=== PATIENT | female | born 1995 | race African-American/Black ===

== ENCOUNTER 2019-09-11 19:28 | Emergency (ER) | payer SELFPAY ==
[~2019-09-11] VITALS: Ht 170.2 cm; Wt 91.6 kg
--- NOTE | 2019-09-11 19:36 | PHYS DOC ---
Past History Past Medical History: Arthritis Adult General Chief Complaint Chief Complaint: ANKLE PROBLEM.. " I got this bad ankle or achelies tendon problem anyway.. I had surgery at 13 months.. in [place].... but I working as [employer] at [employer].. a lot more.. and maybe over used it... or something.. or hurt it at home... HPI HPI Patient is a 24 year old female who presents with above hx and Rt. ankle/ foot pain. Patient states pain has been persistent and right ankle and foot for past 3 days. This is same right ankle and foot where she had surgery at 11 months because of " short" tendon/ " club foot". Patient has been working as a [employer] and been on her feet much more since starting this job. No recent travel. No specific ill contacts. No history of DVT or coagulopathy. Patient does have pain on foot squeeze and on anterior drawer of right ankle. There is some laxity in ligaments. Patient does not remember any specific injury issues. But states it feels like she sprained her ankle and foot. Pulses are equal in right foot as they are in left foot. Does have surgery scar in and right heel tendon insertion area. Review of Systems Review of Systems Constitutional: Denies fever or chills [] Eyes: Denies change in visual acuity, redness, or eye pain [] HENT: Denies nasal congestion or sore throat [] Respiratory: Denies cough or shortness of breath [] Cardiovascular: No additional information not addressed in HPI [] GI: Denies abdominal pain, nausea, vomiting, bloody stools or diarrhea [] : Denies dysuria or hematuria [] Musculoskeletal: Complaints of right foot and ankle pain Integument: Denies rash or skin lesions [] Neurologic: Denies headache, focal weakness or sensory changes [] Endocrine: Denies polyuria or polydipsia [] All other systems were reviewed and found to be within normal limits, except as documented in this note. Family History Family History Noncontributory Current Medications Current Medications See nursing for home meds Physical Exam Physical Exam Constitutional: Mild acute distress, non-toxic appearance. [] HENT: Normocephalic, atraumatic, bilateral external ears normal, oropharynx moist, no oral exudates, nose normal. [] Eyes: PERRLA, EOMI, conjunctiva normal, no discharge. [] Neck: Normal range of motion, no tenderness, supple, no stridor. [] Cardiovascular:Heart rate regular rhythm, no murmur [] Lungs & Thorax: Bilateral breath sounds clear to auscultation [] Abdomen: Bowel sounds normal, soft, no tenderness, no masses, no pulsatile masses. Obese Skin: Warm, dry, no erythema, no rash. [] Back: No tenderness, no CVA tenderness. [] Extremities: No tenderness, no cyanosis, no clubbing, ROM intact, no edema. [] Except findings in right ankle and foot as per history of present illness. Neurologic: Alert and oriented X 3, normal motor function, normal sensory function, no focal deficits noted. [] Psychologic: Affect anxious, judgement normal, mood normal. [] EKG EKG [] Radiology/Procedures Radiology/Procedures [][address] [address] IMAGING REPORT Signed PATIENT: LI JACQUES ACCOUNT: [id number] : 1995 LOCATION: ER AGE: 24 SEX: F EXAM STATUS: REG ER ORD. PHYSICIAN: LANCE CORREA MD REASON: pain, TWISTED, X 3 DAYS PROCEDURE: ANKLE RIGHT 3V EXAM: Right ankle, 3 views; right foot, 3 views. HISTORY: Twisting injury. COMPARISON: None. FINDINGS: 3 views of the right ankle and foot are obtained. There is no fracture, dislocation or subluxation. There is no osteochondral lesion. IMPRESSION: No acute osseous finding. Electronically signed by: Felicitas Palafox MD (09/11/2019 9:44 PM) [facility] DICTATED AND SIGNED BY: FELICITAS PALAFOX MD DATE: 09/11/192143 CC: LANCE CORREA MD; PCP,NO ~ Course & Med Decision Making Course & Med Decision Making Pertinent Labs and Imaging studies reviewed. (See chart for details) Ice, rest, elevation, Nico wrap, and follow-up primary care. Tylenol and ibuprofen for pain. Return if any concerns. Note distal neurovascular intact after application of nico wrap. 1. Right ankle and foot arthralgia 2. History of right ankle Achilles tendon repair- age 11 months. [] Dragon Disclaimer Dragon Disclaimer This electronic medical record was generated, in whole or in part, using a voice recognition dictation system. Departure Departure: Disposition: 01 HOME/RESIDENCE PRIOR TO ADM Condition: STABLE Referrals: PCP,NO (PCP) Scripts Hydrocodone/Ibuprofen (HYDROCODONE-IBUPROFEN 7.5-200 ) 1 Each Tablet 1 TAB PO PRN Q6HRS PRN for PAIN, #30 TAB 0 Refills Prov: LANCE CORREA MD 09/11/19 Drag[employer] Disclaimer This chart was dictated in whole or in part using Voice Recognition software in a busy, high-work load, and often noisy Emergency Department environment. It may contain unintended and wholly unrecognized errors or omissions. LANCE CORREA MD Sep 11, 2019 19:36
[2019-09-11 20:10] LABS: BARBITURATES NEG (NEG); BENZODIAZEPINES NEG (NEG); CANNABINOIDS POS (NEG); COCAINE NEG (NEG); METHADONE NEG (NEG); OPIATES NEG (NEG); PHENCYCLIDINE NEG (NEG)
[2019-09-11 20:12] LABS: BILIRUBIN,URINE NEG (NEG); CLARITY,URINE HAZY; COLOR,URINE YELLOW; GLUCOSE,URINE NEG (NEG)
[2019-09-11 20:13] LABS: AMORPHOUS SEDIMENT,UR PRESENT /HPF; BACTERIA,URINE FEW /HPF (0-FEW); NITRITE,URINE NEG (NEG); RBC,URINE RARE /HPF (0-2); SQUAMOUS EPITHELIAL CELL,UR FEW /LPF; UROBILINOGEN,URINE 0.2 mg/dL (0.2 mg/dL); WBC,URINE OCC /HPF (0-4)
[2019-09-11 20:15] LABS: AMPHETAMINE/METHAMPHETAMINE NEG (NEG)
[2019-09-11] MEDS ORDERED: HYDROcodon/IBUPROFEN 7.5/200MG 1 TAB TABLET PO ONE (20:30)
--- NOTE | 2019-09-11 21:47 | RAD ---
EXAM: Right ankle, 3 views; right foot, 3 views. HISTORY: Twisting injury. COMPARISON: None. FINDINGS: 3 views of the right ankle and foot are obtained. There is no fracture, dislocation or subluxation. There is no osteochondral lesion. IMPRESSION: No acute osseous finding. Electronically signed by: Felicitas Palafox MD (09/11/2019 9:44 PM) [facility]
[2019-09-11 22:07] VITALS: BP 130/61
[2019-09-11] MEDS ORDERED: HYDR-1179 PO (22:07)
== END 2019-09-11 22:20 | disposition home or self-care (01) ==
LOC: ER 19:28
DX: M79.671 Pain in right foot (principal); M25.571 Pain in right ankle and joints of right foot; Z98.890 Other specified postprocedural states
CPT/HCPCS: 36415; 73610; 73630; 80307; 81001; 81025; 99285

== ENCOUNTER 2019-09-21 15:01 | Emergency (ER) | payer SELFPAY ==
[~2019-09-21] VITALS: Ht 170.2 cm; Wt 91.6 kg
[~2019-09-21 15:01] MED LIST: HYDR-1179 PO
--- NOTE | 2019-09-21 15:38 | PHYS DOC ---
Past History Past Medical History: Asthma, Migraines Past Surgical History: No Surgical History Additional Past Surgical Histo: achilles tendon repair Smoking: Cigarettes Alcohol Use: Occasionally Drug Use: None Adult General Chief Complaint Chief Complaint: SORE THROAT HPI HPI Patient is a 24-year-old female, who presents to the emergency department, who presents to the ED for evaluation of 4 days worth of sore throat. She has had some nasal congestion, but no fever. Denies CONTRERAS, trouble breathing, otalgia, or SOB. No other complaints. Review of Systems Review of Systems Constitutional: Denies fever or chills [] Eyes: Denies change in visual acuity, redness, or eye pain [] HENT: Reports nasal congestion and sore throat [] Respiratory: Denies cough or shortness of breath [] GI: Denies abdominal pain, nausea, vomiting [] : Denies dysuria or hematuria [] Musculoskeletal: Denies back pain or joint pain [] Integument: Denies rash or skin lesions [] Neurologic: Denies headache, focal weakness or sensory changes [] Allergies Allergies Allergies Coded Allergies Type Severity Reaction Last Updated Verified latex Allergy Unknown 09/11/19 Yes Physical Exam Physical Exam PHYSICAL EXAM: CONSTITUTIONAL: Well developed, well nourished HEAD: normocephalic, atraumatic EENT: PERRL, EOMI. Conjunctivae normal color, sclerae non-icteric; moist mucous membranes. Tympanic membranes are normal bilaterally. Oropharynx is mildly erythematous, the uvula is midline, there is no peritonsillar edema, there is no exudate, there is mildly tender submandibular lymphadenopathy. Soft tissues of the anterior neck, and larynx, and nontender. NECK: Supple, non-tender; no meningismus. LUNGS: Lungs CTA, breathing even and unlabored. Normal air movement. Voice is normal there is no stridor. HEART: Regular rate and rhythm, no murmur CHEST: No deformity; non-tender ABDOMEN: The abdomen is soft, and non-tender, no masses or bruits. EXTREM: Normal ROM; no deformity, no calf tenderness. Normal pulses palpable in all extremities. There is no pedal edema. SKIN: No rash; no diaphoresis NEURO: Alert; normal speech and cognition; CN's grossly intact; strength grossly intact without focal deficit. BACK: No CVA TTP. Current Patient Data Vital Signs Vital Signs Date Time Temp Pulse Resp B/P (MAP) Pulse Ox O2 Delivery O2 Flow Rate FiO2 09/21/19 15:13 98.6 106 16 100 Room Air EKG EKG [] Radiology/Procedures Radiology/Procedures [] Course & Med Decision Making Course & Med Decision Making Rapid strep test is negative. I discussed expectant management and symptomatically treatment with the patient, the need for close outpatient follow-up and return precautions. Dragon Disclaimer Dragon Disclaimer This electronic medical record was generated, in whole or in part, using a voice recognition dictation system. Departure Departure: Impression: Primary Impression: Pharyngitis Disposition: HOME, SELF-CARE Condition: STABLE Patient Instructions: Viral Pharyngitis RONAN FRANK MD Sep 21, 2019 15:38
== END 2019-09-21 15:42 | disposition home or self-care (01) ==
LOC: ER 15:01
DX: J02.9 Acute pharyngitis, unspecified (principal); J45.909 Unspecified asthma, uncomplicated; G43.909 Migraine, unspecified, not intractable, without status migrainosus; F17.210 Nicotine dependence, cigarettes, uncomplicated; Z91.040 Latex allergy status
CPT/HCPCS: 87070; 87880; 99283